=== PATIENT | male | born 1995 | race African-American/Black ===

== ENCOUNTER 2023-05-28 03:35 | Emergency (ER) | payer OTHER, SELFPAY ==
[2023-05-28] MEDS ORDERED: Ketorolac Tromethamine 30 MG/ML VIAL ONE (05:17)
== END 2023-05-28 05:22 | disposition home or self-care (01) ==
LOC: CSHERS 03:35
DX: S46.911A Strain of unspecified muscle, fascia and tendon at shoulder and upper arm level, right arm, initial encounter (principal); F17.210 Nicotine dependence, cigarettes, uncomplicated; V89.2XXA Person injured in unspecified motor-vehicle accident, traffic, initial encounter
CPT/HCPCS: 96372; J1885